=== PATIENT | female | born 1945 | race Caucasian/White ===

== ENCOUNTER 2022-09-28 13:20 | Outpatient (CLI) | payer MEDICARE, OTHER | END 2022-09-28 13:21 | disposition home or self-care (01) | LOC: SCSMRI 13:20 | PROVIDERS: ATTEND Anesthesiology Pain Medicine | DX: M70.72 Other bursitis of hip, left hip (principal); M25.552 Pain in left hip | CPT/HCPCS: 72195 ==

== ENCOUNTER 2022-11-05 09:17 | Inpatient (IN) | payer MEDICARE, OTHER ==
[2022-11-05 10:16] LABS: #Eosinphils 0.1 thou/uL (0.0-0.7); #Lymphocytes 1.6 thou/uL (1.20-3.40); #Monocytes 0.9 thou/uL (0.11-0.59); #Neutrophils 8.9 thou/uL (1.40-6.50); %Basophils 0.2 % (0.0-1.0); %Eosinophils 0.5 % (0.0-10.0); %Lymphocytes 13.8 % (21.0-51.0); %Neutrophils 77.5 % (42.0-75.0); Hemoglobin 12.3 g/dL (12.0-16.0); Mean Corpuscular HGB CONC 32.3 g/dL (32.0-36.0); Mean Corpuscular Hemoglobin 31.8 pg (27.0-31.0); Mean Corpuscular Volume 98.6 fl (78.0-98.0); Mean Platelet Volume 5.9 fL (7.4-10.4); Platelet Count 351 10x3/uL (130-400); RBC Distribution Width 12.6 % (11.5-14.5); Red Blood Cell (RBC) Count 3.86 mill/uL (4.20-5.40); White Blood Cell (WBC) Count 11.5 10x3/uL (4.8-10.8)
[2022-11-05 10:31] LABS: ALT (SGPT) 13 U/L (8-55); AST (SGOT) 14 U/L (5-34); Albumin 3.9 g/dL (3.4-4.8); Alkaline Phosphatase 115 U/L (40-110); Anion Gap 12 mmol/L (10-20); BUN (Urea Nitrogen) 25 mg/dL (9.8-20.1); Bilirubin, Total 0.7 mg/dL (0.2-1.2); Calc. Creatinine Clearance 0 mL/min (70-130); Calcium 9.2 mg/dL (7.8-10.44); Carbon Dioxide 27 mmol/L (23-31); Chloride 100 mmol/L (98-107); Estimated GFR 47; Globulin 3.7 g/dL (2.4-3.5); Glucose 103 mg/dL (83-110); Protein, Total 7.6 g/dL (5.8-8.1); Sodium 135 mmol/L (136-145)
[2022-11-05 11:34] LABS: Bilirubin Negative (Negative); Blood, Urine Negative (Negative); Clarity Clear (Clear); Glucose, Urine (Dipstick) Normal (Negative); Ketone, Urine Negative (Negative); Leukocyte Negative Leu/uL (Negative); Nitrite Negative (Negative); Protein, Urine (Dipstick) Negative (Neg-Trace); Specific Gravity, Urine 1.009 (1.002-1.036); Urobilinogen Normal mg/dL (Less than 2)
[2022-11-05] MEDS ORDERED: Morphine 4 MG/ML VIAL ONE ×2 (11:35→13:04)
[2022-11-05] MEDS ORDERED: Ketorolac Tromethamine 30 MG/ML VIAL ONE (11:35)
[2022-11-05] MEDS ORDERED: Iopamidol-370 76% 500 ML 1 ML ONE (13:05)
[2022-11-05] MEDS ORDERED: cefTRIAXone\\ROCEPHIN 1 GM VIAL ONE (13:18)
[2022-11-05] MEDS ORDERED: Vancomycin 1 GM/200 ML (FROZEN) BAG ONE (14:41)
[2022-11-05] MEDS ORDERED: Acetaminophen 325 MG TAB PO PRN (14:56)
[2022-11-05 16:13] VITALS: BMI 22.3
[2022-11-05] MEDS ORDERED: Enoxaparin Sodium 60 MG/0.6 ML SYRINGE SC SCH (16:30)
[2022-11-05] MEDS: Carvedilol 25 MG TAB PO SCH (18:42)
[2022-11-05] MEDS: Cefepime 1 GM in Sodium Chloride 0.9% 100 ML IVPB SCH (18:43)
[2022-11-05] MEDS: Morphine 4 MG/ML VIAL SLOW IVP PRN (19:56)
[2022-11-05] MEDS ORDERED: Cefepime 2 GM in Sodium Chloride 0.9% 100 ML IVPB SCH (21:00)
[2022-11-05] MEDS ORDERED: Sodium Chloride 0.9% 1,000 ML IV SCH (21:30)
[2022-11-05 22:06] LABS: SARS-CoV-2 NAA Rapid Test Not Detected (NotDetected)
[2022-11-06] MEDS: Cefepime 1 GM in Sodium Chloride 0.9% 100 ML IVPB SCH (04:38)
[2022-11-06] MEDS: Morphine 4 MG/ML VIAL SLOW IVP PRN ×2 (04:38→10:02)
[2022-11-06 06:03] LABS: #Eosinphils 0.1 thou/uL (0.0-0.7); #Lymphocytes 1.6 thou/uL (1.20-3.40); #Monocytes 0.8 thou/uL (0.11-0.59); #Neutrophils 6.6 thou/uL (1.40-6.50); %Basophils 0.1 % (0.0-1.0); %Eosinophils 0.9 % (0.0-10.0); %Lymphocytes 17.8 % (21.0-51.0); %Monocytes 8.5 % (0.0-10.0); %Neutrophils 72.6 % (42.0-75.0); Hemoglobin 12.1 g/dL (12.0-16.0); Mean Corpuscular HGB CONC 33.5 g/dL (32.0-36.0); Mean Corpuscular Hemoglobin 32.9 pg (27.0-31.0); Mean Corpuscular Volume 98.3 fl (78.0-98.0); Mean Platelet Volume 5.8 fL (7.4-10.4); Platelet Count 319 10x3/uL (130-400); RBC Distribution Width 12.6 % (11.5-14.5); Red Blood Cell (RBC) Count 3.69 mill/uL (4.20-5.40)
[2022-11-06 06:29] LABS: Anion Gap 10 mmol/L (10-20); BUN (Urea Nitrogen) 21 mg/dL (9.8-20.1); Calc. Creatinine Clearance 49 mL/min (70-130); Calcium 8.9 mg/dL (7.8-10.44); Carbon Dioxide 27 mmol/L (23-31); Chloride 104 mmol/L (98-107); Estimated GFR 69; Glucose 96 mg/dL (83-110); Potassium 4.4 mmol/L (3.5-5.1); Sodium 137 mmol/L (136-145)
[2022-11-06 07:26] LABS: INR-International Normal Ratio 1.2; Prothrombin Time 15.5 sec (12.0-14.7)
[2022-11-06] MEDS ORDERED: Vancomycin 1 GM in Premix Bag 1 BAG IVPB SCH (09:00)
[2022-11-06] MEDS ORDERED: FLU VACC QS2022-23(65YR UP)/PF 240 MCG/0.7 ML SYRINGE IM ONE (09:00)
[2022-11-06] MEDS ORDERED: Non-Formulary Item 1 EACH (Ubidecarenone [Co Q-10] 10 MG Capsule) PO SCH (09:00)
[2022-11-06] MEDS ORDERED: Enoxaparin Sodium 60 MG/0.6 ML SYRINGE SC SCH ×2 (09:00→21:00)
[2022-11-06] MEDS ORDERED: Promethazine HCl 25 MG/ML VIAL IM PRN (09:45)
[2022-11-06] MEDS ORDERED: Morphine 2 MG/ML VIAL SLOW IVP PRN (09:47)
[2022-11-06] MEDS ORDERED: Ketorolac Tromethamine 30 MG/ML VIAL IVP SCH (10:00)
[2022-11-06] MEDS: Carvedilol 25 MG TAB PO SCH ×2 (10:01→17:53)
[2022-11-06] MEDS: Acetaminophen 325 MG TAB PO SCH ×2 (10:06→17:53)
[2022-11-06] MEDS: Ondansetron PF 4 MG/2 ML Vial IVP PRN (10:07)
[2022-11-06] MEDS: Ketorolac Tromethamine 30 MG/ML VIAL IVP SCH ×2 (11:01→17:54)
[2022-11-06] MEDS: Atorvastatin Calcium 40 MG TAB PO SCH (21:13)
[2022-11-06] MEDS: Famotidine 20 MG TAB PO SCH (21:13)
[2022-11-07] MEDS: Acetaminophen 325 MG TAB PO SCH ×4 (00:20→18:04)
[2022-11-07] MEDS: Ketorolac Tromethamine 30 MG/ML VIAL IVP SCH ×3 (00:21→11:22)
[2022-11-07] MEDS: Ondansetron PF 4 MG/2 ML Vial IVP PRN ×2 (05:39→15:24)
[2022-11-07 08:28] LABS: Vancomycin, Trough 13.9 ug/mL
[2022-11-07] MEDS: Famotidine 20 MG TAB PO SCH ×2 (09:43→22:25)
[2022-11-07] MEDS: Carvedilol 25 MG TAB PO SCH ×2 (09:44→18:03)
[2022-11-07] MEDS ORDERED: ALPRAZolam 1 MG TAB PO SCH (10:45)
[2022-11-07] MEDS ORDERED: FENTANYL 50 MCG/ML 1 ML VIAL ONE (11:21)
[2022-11-07] MEDS ORDERED: Sodium Bicarbonate 2.5 MEQ/5 ML VIAL ONE (12:10)
[2022-11-07] MEDS ORDERED: Magnevist 469MG/ML 20 ML VIAL ONE (13:09)
[2022-11-07] MEDS: Sodium Chloride 0.9% 1,000 ML IV SCH (15:09)
[2022-11-07] MEDS: Morphine 4 MG/ML VIAL SLOW IVP PRN (20:05)
[2022-11-07] MEDS: Atorvastatin Calcium 40 MG TAB PO SCH (22:25)
[2022-11-07] MEDS: Senokot S 8.6-50 MG TAB PO SCH (22:25)
[2022-11-08] MEDS: Acetaminophen 325 MG TAB PO SCH ×3 (00:03→12:49)
[2022-11-08] MEDS: Sodium Chloride 0.9% 1,000 ML IV SCH ×2 (01:12→13:33)
[2022-11-08 06:28] LABS: #Eosinphils 0.1 thou/uL (0.0-0.7); #Lymphocytes 1.5 thou/uL (1.20-3.40); #Monocytes 0.7 thou/uL (0.11-0.59); #Neutrophils 5.4 thou/uL (1.40-6.50); %Basophils 0.1 % (0.0-1.0); %Eosinophils 1.6 % (0.0-10.0); %Lymphocytes 19.2 % (21.0-51.0); %Monocytes 9.3 % (0.0-10.0); %Neutrophils 69.7 % (42.0-75.0); Hemoglobin 10.9 g/dL (12.0-16.0); Mean Corpuscular Hemoglobin 32.6 pg (27.0-31.0); Mean Corpuscular Volume 98.9 fl (78.0-98.0); Mean Platelet Volume 5.8 fL (7.4-10.4); Platelet Count 276 10x3/uL (130-400); RBC Distribution Width 12.4 % (11.5-14.5); Red Blood Cell (RBC) Count 3.34 mill/uL (4.20-5.40); White Blood Cell (WBC) Count 7.8 10x3/uL (4.8-10.8)
[2022-11-08 06:44] LABS: ALT (SGPT) 9 U/L (8-55); AST (SGOT) 14 U/L (5-34); Albumin 3.1 g/dL (3.4-4.8); Alkaline Phosphatase 85 U/L (40-110); Anion Gap 12 mmol/L (10-20); BUN (Urea Nitrogen) 22 mg/dL (9.8-20.1); Bilirubin, Total 0.7 mg/dL (0.2-1.2); Calc. Creatinine Clearance 46 mL/min (70-130); Calcium 8.3 mg/dL (7.8-10.44); Carbon Dioxide 23 mmol/L (23-31); Chloride 107 mmol/L (98-107); Estimated GFR 63; Glucose 88 mg/dL (83-110); Potassium 4.6 mmol/L (3.5-5.1); Protein, Total 6.1 g/dL (5.8-8.1); Sodium 137 mmol/L (136-145)
[2022-11-08] MEDS ORDERED: Polyethylene Glycol 3350 17 GM Packet PO SCH (09:00)
[2022-11-08] MEDS: Carvedilol 25 MG TAB PO SCH (10:02)
[2022-11-08] MEDS: Famotidine 20 MG TAB PO SCH (10:02)
[2022-11-08] MEDS: Senokot S 8.6-50 MG TAB PO SCH (10:02)
[2022-11-08] MEDS ORDERED: Iopamidol-370 76% 500 ML 1 ML ONE (13:07)
[2022-11-08] MEDS: Morphine 4 MG/ML VIAL SLOW IVP PRN (13:30)
[2022-11-08 17:27] VITALS: BP 138/81; TEMP 98.4
== END 2022-11-08 17:30 | disposition home or self-care (01) | DRG 754 ==
LOC: ERS 09:17 → SURG B 15:27
PROVIDERS: ADMIT Family Medicine; ATTEND Internal Medicine
PROC: 0WBH3ZX Excision of Retroperitoneum, Percutaneous Approach, Diagnostic (ICD-10-PCS; principal; 2022-11-07)
DX: C76.3 Malignant neoplasm of pelvis (principal); G93.6 Cerebral edema; I48.11 Longstanding persistent atrial fibrillation; L02.211 Cutaneous abscess of abdominal wall; C79.31 Secondary malignant neoplasm of brain; Z66 Do not resuscitate; K61.39 Other ischiorectal abscess; Z20.822 Contact with and (suspected) exposure to COVID-19; I48.0 Paroxysmal atrial fibrillation; I12.9 Hypertensive chronic kidney disease with stage 1 through stage 4 chronic kidney disease, or unspecified chronic kidney disease; N18.30 Chronic kidney disease, stage 3 unspecified; Z79.01 Long term (current) use of anticoagulants; Z79.899 Other long term (current) drug therapy; Z88.6 Allergy status to analgesic agent
CPT/HCPCS: 36415; 70553; 71260; 72192; 74177; 77012; 80048; 80053; 80202; 81003; 82105; 82378; 85025; 85610; 85730; 86301; 87040; 87086; 88305; 93306; 96374; 96375; A9579; J0692; J0696; J1650; J1885; J2270; J2405; J2550; J3010; J3370-JW; J3490; J7050; Q9967; U0002

== ENCOUNTER 2022-12-20 12:29 | Emergency (ER) | payer MEDICARE, OTHER ==
[2022-12-20 13:00] LABS: #Eosinphils 0.1 thou/uL (0.0-0.7); #Lymphocytes 1.2 thou/uL (1.20-3.40); #Monocytes 0.6 thou/uL (0.11-0.59); #Neutrophils 11.5 thou/uL (1.40-6.50); %Basophils 0.3 % (0.0-1.0); %Eosinophils 0.4 % (0.0-10.0); %Lymphocytes 8.9 % (21.0-51.0); %Monocytes 4.2 % (0.0-10.0); %Neutrophils 86.1 % (42.0-75.0); Hemoglobin 14.6 g/dL (12.0-16.0); Mean Corpuscular HGB CONC 32.3 g/dL (32.0-36.0); Mean Corpuscular Hemoglobin 31.7 pg (27.0-31.0); Mean Platelet Volume 6.1 fL (7.4-10.4); Platelet Count 311 10x3/uL (130-400); RBC Distribution Width 13.6 % (11.5-14.5); Red Blood Cell (RBC) Count 4.62 mill/uL (4.20-5.40); White Blood Cell (WBC) Count 13.4 10x3/uL (4.8-10.8)
[2022-12-20] MEDS ORDERED: Ketorolac Tromethamine 30 MG/ML VIAL ONE (13:14)
[2022-12-20] MEDS ORDERED: HYDROmorphone 0.5 MG/0.5 ML SYRINGE ONE (13:30)
[2022-12-20 13:41] LABS: ALT (SGPT) 15 U/L (8-55); AST (SGOT) 24 U/L (5-34); Albumin 3.4 g/dL (3.4-4.8); Alkaline Phosphatase 85 U/L (40-110); Anion Gap 20 mmol/L (10-20); BUN (Urea Nitrogen) 36 mg/dL (9.8-20.1); Bilirubin, Total 1.8 mg/dL (0.2-1.2); Calc. Creatinine Clearance 0 mL/min (70-130); Calcium 9.4 mg/dL (7.8-10.44); Carbon Dioxide 20 mmol/L (23-31); Chloride 95 mmol/L (98-107); Estimated GFR 39; Globulin 3.5 g/dL (2.4-3.5); Glucose 110 mg/dL (83-110); Potassium 4.4 mmol/L (3.5-5.1); Protein, Total 6.9 g/dL (5.8-8.1); Sodium 131 mmol/L (136-145)
[2022-12-20] MEDS ORDERED: Dextrose 10% in Water 250 ML IVPB SCH (14:00)
[2022-12-20] MEDS ORDERED: Ondansetron PF 4 MG/2 ML Vial ONE (14:18)
[2022-12-20] MEDS ORDERED: Promethazine HCl 25 MG in Sodium Chloride 0.9% 50 ML IVPB SCH (15:15)
== END 2022-12-20 19:50 | disposition home or self-care (01) ==
LOC: ERS 12:29
DX: R10.9 Unspecified abdominal pain (principal); R10.2 Pelvic and perineal pain; E86.0 Dehydration; I10 Essential (primary) hypertension; I48.91 Unspecified atrial fibrillation; E78.00 Pure hypercholesterolemia, unspecified; Z79.01 Long term (current) use of anticoagulants; Z79.899 Other long term (current) drug therapy
CPT/HCPCS: 36415; 74177; 80053; 85025; 96361; 96374; 96375; J1170; J1885; J2405; J2550

== ENCOUNTER 2023-01-04 00:19 | Inpatient (IN) | payer MEDICARE, OTHER ==
[2023-01-04 01:07] LABS: #Basophils 0.1 thou/uL (0.0-0.2); #Eosinphils 0.1 thou/uL (0.0-0.7); #Lymphocytes 1.4 thou/uL (1.20-3.40); #Monocytes 0.8 thou/uL (0.11-0.59); #Neutrophils 7.6 thou/uL (1.40-6.50); %Basophils 0.5 % (0.0-1.0); %Eosinophils 1.1 % (0.0-10.0); %Lymphocytes 14.1 % (21.0-51.0); %Monocytes 7.8 % (0.0-10.0); %Neutrophils 76.6 % (42.0-75.0); Hemoglobin 12.1 g/dL (12.0-16.0); Mean Corpuscular Hemoglobin 31.9 pg (27.0-31.0); Mean Corpuscular Volume 96.6 fl (78.0-98.0); Mean Platelet Volume 5.6 fL (7.4-10.4); Platelet Count 541 10x3/uL (130-400); RBC Distribution Width 13.2 % (11.5-14.5)
[2023-01-04 01:26] LABS: ALT (SGPT) 17 U/L (8-55); AST (SGOT) 22 U/L (5-34); Albumin 2.7 g/dL (3.4-4.8); Alkaline Phosphatase 92 U/L (40-110); Anion Gap 17 mmol/L (10-20); BUN (Urea Nitrogen) 19 mg/dL (9.8-20.1); Bilirubin, Total 1.2 mg/dL (0.2-1.2); Calc. Creatinine Clearance 0 mL/min (70-130); Calcium 8.9 mg/dL (7.8-10.44); Carbon Dioxide 25 mmol/L (23-31); Chloride 97 mmol/L (98-107); Estimated GFR 47; Globulin 3.3 g/dL (2.4-3.5); Glucose 144 mg/dL (83-110); Potassium 3.5 mmol/L (3.5-5.1); Sodium 135 mmol/L (136-145)
[2023-01-04 01:43] LABS: INR-International Normal Ratio 1.7; Prothrombin Time 20.3 sec (12.0-14.7)
[2023-01-04 01:44] LABS: PTT 29.3 sec (22.9-36.1)
[2023-01-04 01:50] LABS: Magnesium 1.6 mg/dL (1.6-2.6); Phosphorus 2.7 mg/dL (2.3-4.7)
[2023-01-04] MEDS ORDERED: Dextrose 5% in Water 1,000 ML IV PRN (02:15)
[2023-01-04] MEDS ORDERED: Dextrose 50% Abboject 50 ML SYRINGE SLOW IVP PRN (02:15)
[2023-01-04] MEDS ORDERED: hydrALAZINE 20 MG/ML VIAL SLOW IVP PRN (02:15)
[2023-01-04] MEDS ORDERED: Acetaminophen/Codeine 30-300mg Tablet PO PRN (02:18)
[2023-01-04] MEDS ORDERED: Cyclobenzaprine 10 MG TAB PO PRN (02:18)
[2023-01-04] MEDS ORDERED: Magnesium 2 GM/50 ML(in water) 2 GM in Premix Bag 1 BAG IVPB SCH (02:30)
[2023-01-04] MEDS ORDERED: Potassium Phosphate 30 MMOL in Sodium Chloride 0.9% 500 ML IVPB SCH (03:00)
[2023-01-04] MEDS ORDERED: Sodium Chloride 0.9% 1,000 ML IV SCH ×2 (03:00→23:55)
[2023-01-04] MEDS ORDERED: Ondansetron PF 4 MG/2 ML Vial ONE ×2 (03:44→04:28)
[2023-01-04] MEDS ORDERED: Magnesium 2 GM/50 ML BAG (IN WATER) ONE (04:02)
[2023-01-04] MEDS ORDERED: Amiodarone 450 MG in Dextrose 5% in Water 250 ML IVPB SCH (04:15)
[2023-01-04] MEDS ORDERED: Amiodarone 150 MG, Admixture Fee 1 EACH in Dextrose 5% in Water 100 ML IVPB SCH (04:15)
[2023-01-04] MEDS ORDERED: Morphine 4 MG/ML VIAL ONE (04:23)
[2023-01-04] MEDS: Ondansetron PF 4 MG/2 ML Vial IVP PRN (04:28)
[2023-01-04] MEDS: Morphine 4 MG/ML VIAL SLOW IVP PRN ×2 (04:30→09:17)
[2023-01-04 06:34] LABS: Bilirubin Negative (Negative); Blood, Urine Negative (Negative); Clarity Clear (Clear); Glucose, Urine (Dipstick) Normal (Negative); Ketone, Urine Trace mg/dL (Negative); Leukocyte Negative Leu/uL (Negative); Nitrite Negative (Negative); Protein, Urine (Dipstick) Negative (Neg-Trace); Specific Gravity, Urine 1.013 (1.002-1.036); Urobilinogen Normal mg/dL (Less than 2)
[2023-01-04 06:46] LABS: Troponin I 0.039 ng/mL (< 0.028)
[2023-01-04] MEDS ORDERED: CEFAZOLIN 2 GM in Sodium Chloride 0.9% 100 ML IVPB SCH (07:30)
[2023-01-04 07:34] VITALS: BMI 19.4
[2023-01-04] MEDS: Gabapentin 100 MG CAP PO SCH ×3 (09:21→22:35)
[2023-01-04] MEDS: Famotidine 20 MG TAB PO SCH ×2 (09:21→22:35)
[2023-01-04] MEDS: Senokot S 8.6-50 MG TAB PO SCH ×2 (09:22→22:35)
[2023-01-04] MEDS: Acetaminophen/Codeine 30-300mg Tablet PO SCH ×4 (09:23→18:24)
[2023-01-04] MEDS: Acetaminophen 325 MG TAB PO SCH ×3 (09:25→18:05)
[2023-01-04] MEDS: Polyethylene Glycol 3350 17 GM Packet PO SCH (09:29)
[2023-01-04 09:33] LABS: Troponin I 0.085 ng/mL (< 0.028)
[2023-01-04 13:58] LABS: Bacteria/HPF None Seen HPF (None Seen); Bilirubin Negative (Negative); Blood, Urine Negative (Negative); CAUTI Indications for Culture Pelvic or flank pain; Clarity Clear (Clear); Glucose, Urine (Dipstick) Normal (Negative); Ketone, Urine Negative (Negative); Leukocyte Negative Leu/uL (Negative); Nitrite Negative (Negative); Protein, Urine (Dipstick) Negative (Neg-Trace); RBC/HPF 0-3 HPF (0-3); Specific Gravity, Urine 1.011 (1.002-1.036); Squamous Epithelial None Seen HPF (0-3); Urobilinogen Normal mg/dL (Less than 2)
[2023-01-04 13:59] LABS: Urine Culture Reflex No No
[2023-01-04] MEDS: Amiodarone 450 MG, Admixture Fee 1 EACH in Dextrose 5% in Water 250 ML IVPB SCH (15:17)
[2023-01-04] MEDS ORDERED: Sodium Chloride 0.9% 500 ML IV SCH (16:15)
[2023-01-04] MEDS ORDERED: Carvedilol 25 MG TAB PO SCH (17:00)
[2023-01-04] MEDS ORDERED: Fentanyl 100 MCG/2 ML VIAL SLOW IVP PRN (19:57)
[2023-01-04] MEDS ORDERED: Hydrocortisone Sod Succ/PF 100 mg/2 ml Vial IVP SCH (20:00)
[2023-01-05] MEDS: Acetaminophen 325 MG TAB PO SCH ×4 (00:03→18:22)
[2023-01-05] MEDS: Acetaminophen/Codeine 30-300mg Tablet PO SCH ×4 (00:04→18:23)
[2023-01-05] MEDS: Hydrocortisone Sod Succ/PF 100 mg/2 ml Vial IVP SCH ×3 (03:15→13:46)
[2023-01-05 04:36] LABS: #Eosinphils 0.1 thou/uL (0.0-0.7); #Lymphocytes 0.9 thou/uL (1.20-3.40); #Monocytes 0.2 thou/uL (0.11-0.59); #Neutrophils 8.4 thou/uL (1.40-6.50); %Lymphocytes 9.7 % (21.0-51.0); %Neutrophils 87.3 % (42.0-75.0); Hemoglobin 12.1 g/dL (12.0-16.0); Mean Corpuscular HGB CONC 32.8 g/dL (32.0-36.0); Mean Corpuscular Hemoglobin 31.8 pg (27.0-31.0); Mean Corpuscular Volume 96.7 fl (78.0-98.0); Mean Platelet Volume 5.8 fL (7.4-10.4); Platelet Count 414 10x3/uL (130-400); RBC Distribution Width 13.5 % (11.5-14.5); Red Blood Cell (RBC) Count 3.82 mill/uL (4.20-5.40); White Blood Cell (WBC) Count 9.7 10x3/uL (4.8-10.8)
[2023-01-05 05:09] LABS: Anion Gap 14 mmol/L (10-20); BUN (Urea Nitrogen) 15 mg/dL (9.8-20.1); Calc. Creatinine Clearance 42 mL/min (70-130); Calcium 8.3 mg/dL (7.8-10.44); Carbon Dioxide 23 mmol/L (23-31); Chloride 102 mmol/L (98-107); Estimated GFR 66; Glucose 118 mg/dL (83-110); Phosphorus 3.5 mg/dL (2.3-4.7); Potassium 4.6 mmol/L (3.5-5.1); Sodium 134 mmol/L (136-145)
[2023-01-05] MEDS ORDERED: Fentanyl 250 MCG/5 ML VIAL ONE (07:24)
[2023-01-05] MEDS ORDERED: CEFAZOLIN 2 GM VIAL ONE (07:58)
[2023-01-05] MEDS ORDERED: Sodium Chloride 0.9% 100 ML ONE (07:58)
[2023-01-05] MEDS ORDERED: ePHEDrine 50 MG/ML VIAL ONE (08:30)
[2023-01-05] MEDS ORDERED: Dexamethasone 20 MG/5 ML VIAL ONE (08:30)
[2023-01-05] MEDS ORDERED: Lidocaine 1% PF 5 ML VIAL ONE (08:30)
[2023-01-05] MEDS ORDERED: PROPOFOL 200 MG/20 ML VIAL ONE (08:30)
[2023-01-05] MEDS ORDERED: Ondansetron PF 4 MG/2 ML Vial ONE (08:30)
[2023-01-05] MEDS ORDERED: Ondansetron HCl/PF 4 MG/2 ML Vial IVP PRN (09:52)
[2023-01-05] MEDS ORDERED: fentaNYL PF 100 MCG/2 ML SYRINGE ONE (09:52)
[2023-01-05] MEDS ORDERED: HYDROmorphone 2 MG/ML VIAL SLOW IVP PRN (09:52)
[2023-01-05] MEDS ORDERED: Promethazine HCl 25 MG/ML VIAL IM PRN (09:52)
[2023-01-05] MEDS: Famotidine 20 MG TAB PO SCH ×2 (10:44→20:26)
[2023-01-05] MEDS: Senokot S 8.6-50 MG TAB PO SCH ×2 (10:45→20:26)
[2023-01-05] MEDS: Gabapentin 100 MG CAP PO SCH ×3 (10:45→20:26)
[2023-01-05] MEDS: Polyethylene Glycol 3350 17 GM Packet PO SCH (10:46)
[2023-01-05] MEDS: Amiodarone 450 MG, Admixture Fee 1 EACH in Dextrose 5% in Water 250 ML IVPB SCH ×2 (10:59→22:00)
[2023-01-05] MEDS: CEFAZOLIN 2 GM in Sodium Chloride 0.9% 100 ML IVPB SCH (15:10)
[2023-01-05] MEDS: fentaNYL 50 mcg/hour Patch TD SCH (16:00)
[2023-01-05] MEDS: Ondansetron PF 4 MG/2 ML Vial IVP PRN (16:00)
[2023-01-05] MEDS ORDERED: Hydrocortisone Sod Succ/PF 100 mg/2 ml Vial IVP SCH (19:30)
[2023-01-05] MEDS: Amiodarone 200 MG TAB PO SCH (20:26)
[2023-01-05] MEDS: Atorvastatin Calcium 40 MG TAB PO SCH (20:26)
[2023-01-05] MEDS: Doxepin HCl 10 MG CAP PO SCH (20:26)
[2023-01-05] MEDS: [UNRECOGNIZED DRUG - OTHER] PO SCH (20:27)
[2023-01-06] MEDS: Hydrocortisone Sod Succ/PF 100 mg/2 ml Vial IVP SCH ×5 (00:02→20:52)
[2023-01-06] MEDS: CEFAZOLIN 2 GM in Sodium Chloride 0.9% 100 ML IVPB SCH (00:02)
[2023-01-06] MEDS: Ondansetron PF 4 MG/2 ML Vial IVP PRN (00:03)
[2023-01-06] MEDS: Acetaminophen/Codeine 30-300mg Tablet PO SCH ×5 (00:03→23:45)
[2023-01-06] MEDS: Acetaminophen 325 MG TAB PO SCH ×5 (00:04→23:45)
[2023-01-06 05:17] LABS: #Monocytes 0.7 thou/uL (0.11-0.59); #Neutrophils 10.9 thou/uL (1.40-6.50); %Basophils 0.1 % (0.0-1.0); %Eosinophils 0.2 % (0.0-10.0); %Lymphocytes 8.1 % (21.0-51.0); %Monocytes 5.8 % (0.0-10.0); %Neutrophils 85.8 % (42.0-75.0); Hemoglobin 9.9 g/dL (12.0-16.0); Mean Corpuscular HGB CONC 33.2 g/dL (32.0-36.0); Mean Corpuscular Volume 96.6 fl (78.0-98.0); Mean Platelet Volume 6.4 fL (7.4-10.4); Platelet Count 345 10x3/uL (130-400); RBC Distribution Width 13.5 % (11.5-14.5); White Blood Cell (WBC) Count 12.7 10x3/uL (4.8-10.8)
[2023-01-06 05:50] LABS: Anion Gap 12 mmol/L (10-20); BUN (Urea Nitrogen) 20 mg/dL (9.8-20.1); Calc. Creatinine Clearance 43 mL/min (70-130); Calcium 7.8 mg/dL (7.8-10.44); Carbon Dioxide 22 mmol/L (23-31); Chloride 103 mmol/L (98-107); Estimated GFR 68; Glucose 138 mg/dL (83-110); Magnesium 1.9 mg/dL (1.6-2.6); Phosphorus 2.4 mg/dL (2.3-4.7); Potassium 3.6 mmol/L (3.5-5.1); Sodium 133 mmol/L (136-145)
[2023-01-06] MEDS ORDERED: Magnesium 2 GM/50 ML(in water) 2 GM in Premix Bag 1 BAG IVPB SCH (09:00)
[2023-01-06] MEDS: [UNRECOGNIZED DRUG - OTHER] PO SCH ×2 (09:33→20:52)
[2023-01-06] MEDS: Polyethylene Glycol 3350 17 GM Packet PO SCH (09:34)
[2023-01-06] MEDS: Gabapentin 100 MG CAP PO SCH ×3 (09:34→20:51)
[2023-01-06] MEDS: Famotidine 20 MG TAB PO SCH ×2 (09:34→20:51)
[2023-01-06] MEDS: Amiodarone 200 MG TAB PO SCH ×2 (09:35→20:51)
[2023-01-06] MEDS: Senokot S 8.6-50 MG TAB PO SCH ×2 (09:35→20:51)
[2023-01-06] MEDS: Doxepin HCl 10 MG CAP PO SCH (20:51)
[2023-01-06] MEDS: Atorvastatin Calcium 40 MG TAB PO SCH (20:51)
[2023-01-07 04:53] LABS: #Eosinphils 0.1 thou/uL (0.0-0.7); #Lymphocytes 1.1 thou/uL (1.20-3.40); #Monocytes 0.7 thou/uL (0.11-0.59); #Neutrophils 10.9 thou/uL (1.40-6.50); %Eosinophils 0.4 % (0.0-10.0); %Lymphocytes 8.2 % (21.0-51.0); %Monocytes 5.5 % (0.0-10.0); %Neutrophils 85.8 % (42.0-75.0); Hemoglobin 9.5 g/dL (12.0-16.0); Mean Corpuscular HGB CONC 33.5 g/dL (32.0-36.0); Mean Corpuscular Hemoglobin 32.4 pg (27.0-31.0); Mean Corpuscular Volume 96.6 fl (78.0-98.0); Mean Platelet Volume 6.2 fL (7.4-10.4); Platelet Count 357 10x3/uL (130-400); RBC Distribution Width 13.5 % (11.5-14.5); Red Blood Cell (RBC) Count 2.94 mill/uL (4.20-5.40); White Blood Cell (WBC) Count 12.7 10x3/uL (4.8-10.8)
[2023-01-07 05:18] LABS: Anion Gap 11 mmol/L (10-20); BUN (Urea Nitrogen) 25 mg/dL (9.8-20.1); Calc. Creatinine Clearance 43 mL/min (70-130); Carbon Dioxide 23 mmol/L (23-31); Chloride 105 mmol/L (98-107); Potassium 4.1 mmol/L (3.5-5.1); Sodium 135 mmol/L (136-145)
[2023-01-07 05:19] LABS: Calcium 7.6 mg/dL (7.8-10.44); Estimated GFR 63; Glucose 127 mg/dL (83-110); Magnesium 2.4 mg/dL (1.6-2.6); Phosphorus 3.2 mg/dL (2.3-4.7)
[2023-01-07] MEDS: Hydrocortisone Sod Succ/PF 100 mg/2 ml Vial IVP SCH ×3 (05:32→21:07)
[2023-01-07] MEDS: Acetaminophen 325 MG TAB PO SCH (05:33)
[2023-01-07] MEDS: Acetaminophen/Codeine 30-300mg Tablet PO SCH (05:33)
[2023-01-07] MEDS: Senokot S 8.6-50 MG TAB PO SCH ×2 (08:33→21:03)
[2023-01-07] MEDS: Gabapentin 100 MG CAP PO SCH ×3 (08:33→21:05)
[2023-01-07] MEDS: Famotidine 20 MG TAB PO SCH ×2 (08:33→21:03)
[2023-01-07] MEDS: Polyethylene Glycol 3350 17 GM Packet PO SCH (08:33)
[2023-01-07] MEDS: Amiodarone 200 MG TAB PO SCH ×2 (08:33→21:05)
[2023-01-07] MEDS: [UNRECOGNIZED DRUG - OTHER] PO SCH ×2 (08:33→21:12)
[2023-01-07] MEDS ORDERED: traMADol HCl 50 MG TAB PO PRN (09:25)
[2023-01-07] MEDS ORDERED: Acetaminophen 325 MG TAB PO SCH (09:28)
[2023-01-07] MEDS ORDERED: Scopolamine 1.5 mg/72 hour Patch TD SCH (10:00)
[2023-01-07] MEDS: Acetaminophen 500 MG TAB PO SCH ×3 (11:36→23:50)
[2023-01-07] MEDS: traMADol HCl 50 MG TAB PO SCH ×3 (11:36→23:49)
[2023-01-07] MEDS: Atorvastatin Calcium 40 MG TAB PO SCH (21:03)
[2023-01-07] MEDS: Apixaban 5 MG TAB PO SCH (21:06)
[2023-01-07] MEDS: Doxepin HCl 10 MG CAP PO SCH (22:05)
[2023-01-08 04:53] LABS: #Eosinphils 0.1 thou/uL (0.0-0.7); #Lymphocytes 0.9 thou/uL (1.20-3.40); #Monocytes 0.5 thou/uL (0.11-0.59); #Neutrophils 7.9 thou/uL (1.40-6.50); %Eosinophils 0.6 % (0.0-10.0); %Lymphocytes 9.2 % (21.0-51.0); %Monocytes 5.7 % (0.0-10.0); %Neutrophils 84.5 % (42.0-75.0); Hemoglobin 8.7 g/dL (12.0-16.0); Mean Corpuscular HGB CONC 33.3 g/dL (32.0-36.0); Mean Corpuscular Hemoglobin 32.5 pg (27.0-31.0); Mean Corpuscular Volume 97.6 fl (78.0-98.0); Mean Platelet Volume 6.2 fL (7.4-10.4); Platelet Count 346 10x3/uL (130-400); RBC Distribution Width 13.5 % (11.5-14.5); Red Blood Cell (RBC) Count 2.68 mill/uL (4.20-5.40); White Blood Cell (WBC) Count 9.4 10x3/uL (4.8-10.8)
[2023-01-08] MEDS: Acetaminophen 500 MG TAB PO SCH ×4 (05:57→18:48)
[2023-01-08] MEDS: Hydrocortisone Sod Succ/PF 100 mg/2 ml Vial IVP SCH ×3 (05:57→22:06)
[2023-01-08] MEDS: traMADol HCl 50 MG TAB PO SCH ×3 (05:58→18:49)
[2023-01-08] MEDS: Gabapentin 100 MG CAP PO SCH ×3 (08:37→20:48)
[2023-01-08] MEDS: Famotidine 20 MG TAB PO SCH ×2 (08:38→20:49)
[2023-01-08] MEDS: Apixaban 5 MG TAB PO SCH ×2 (08:38→20:49)
[2023-01-08] MEDS: Amiodarone 200 MG TAB PO SCH ×2 (08:38→21:54)
[2023-01-08] MEDS: Senokot S 8.6-50 MG TAB PO SCH ×2 (08:39→20:49)
[2023-01-08] MEDS: Polyethylene Glycol 3350 17 GM Packet PO SCH (08:39)
[2023-01-08] MEDS: [UNRECOGNIZED DRUG - OTHER] PO SCH ×2 (08:45→21:53)
[2023-01-08] MEDS: Ondansetron PF 4 MG/2 ML Vial IVP PRN ×2 (12:57→20:58)
[2023-01-08] MEDS: fentaNYL 50 mcg/hour Patch TD SCH (15:41)
[2023-01-08] MEDS: Atorvastatin Calcium 40 MG TAB PO SCH (20:49)
[2023-01-08] MEDS: Doxepin HCl 10 MG CAP PO SCH (20:49)
[2023-01-09] MEDS: Acetaminophen 500 MG TAB PO SCH ×3 (04:04→12:25)
[2023-01-09] MEDS: traMADol HCl 50 MG TAB PO SCH ×3 (04:06→12:26)
[2023-01-09] MEDS: Hydrocortisone Sod Succ/PF 100 mg/2 ml Vial IVP SCH (06:18)
[2023-01-09] MEDS: Apixaban 5 MG TAB PO SCH (08:16)
[2023-01-09] MEDS: Amiodarone 200 MG TAB PO SCH (08:16)
[2023-01-09] MEDS: Gabapentin 100 MG CAP PO SCH (08:16)
[2023-01-09] MEDS: Polyethylene Glycol 3350 17 GM Packet PO SCH (08:17)
[2023-01-09] MEDS: Senokot S 8.6-50 MG TAB PO SCH (08:17)
[2023-01-09] MEDS: Famotidine 20 MG TAB PO SCH (08:17)
[2023-01-09] MEDS: [UNRECOGNIZED DRUG - OTHER] PO SCH (08:24)
[2023-01-09] MEDS: Ondansetron PF 4 MG/2 ML Vial IVP PRN (12:25)
[2023-01-09 12:30] VITALS: BP 127/77; TEMP 99.2
[2023-01-19] MEDS ORDERED: Amiodarone 200 MG TAB PO SCH (09:00)
== END 2023-01-09 14:30 | disposition home or self-care (01) | DRG 480 ==
LOC: ERS 00:19 → ERHOLD 02:19 → 2NO 06:18
PROVIDERS: ADMIT Surgery; ATTEND Surgery
PROC: 0QH936Z Insertion of Intramedullary Internal Fixation Device into Left Femoral Shaft, Percutaneous Approach (ICD-10-PCS; principal; 2023-01-05)
DX: S72.332A Displaced oblique fracture of shaft of left femur, initial encounter for closed fracture (principal); G93.6 Cerebral edema; C34.90 Malignant neoplasm of unspecified part of unspecified bronchus or lung; C79.31 Secondary malignant neoplasm of brain; E78.00 Pure hypercholesterolemia, unspecified; I48.0 Paroxysmal atrial fibrillation; W18.30XA Fall on same level, unspecified, initial encounter; I12.9 Hypertensive chronic kidney disease with stage 1 through stage 4 chronic kidney disease, or unspecified chronic kidney disease; N18.30 Chronic kidney disease, stage 3 unspecified; D75.839 Thrombocytosis, unspecified; Z88.5 Allergy status to narcotic agent; Z79.899 Other long term (current) drug therapy; Z79.01 Long term (current) use of anticoagulants; Z90.710 Acquired absence of both cervix and uterus
CPT/HCPCS: 36415; 36416; 70450; 70553; 71045; 80048; 80053; 81003; 82533; 83690; 83735; 84100; 84484; 85025; 85610; 85730; 86850; 86900; 86901; 87086; 93005; 93010; 96374; C1713; G0390; J0282; J1100; J1720; J2270; J2405; J2704; J3010; J3475; J3490; J7030; J7050; J7070; U0003; U0005

== ENCOUNTER 2023-01-13 21:34 | Inpatient (IN) | payer MEDICARE, OTHER ==
[2023-01-13] MEDS ORDERED: Apixaban 5 MG TAB PO SCH (22:30)
[2023-01-13] MEDS ORDERED: Amiodarone 200 MG TAB PO SCH (22:30)
[2023-01-13 23:06] LABS: #Basophils 0.1 thou/uL (0.0-0.2); #Eosinphils 0.2 thou/uL (0.0-0.7); #Lymphocytes 1.2 thou/uL (1.20-3.40); #Monocytes 0.7 thou/uL (0.11-0.59); #Neutrophils 7.8 thou/uL (1.40-6.50); %Basophils 0.7 % (0.0-1.0); %Eosinophils 1.9 % (0.0-10.0); %Lymphocytes 11.7 % (21.0-51.0); %Neutrophils 78.7 % (42.0-75.0); Hemoglobin 10.2 g/dL (12.0-16.0); Mean Corpuscular HGB CONC 33.9 g/dL (32.0-36.0); Mean Corpuscular Hemoglobin 32.9 pg (27.0-31.0); Mean Corpuscular Volume 97.1 fl (78.0-98.0); Mean Platelet Volume 6.6 fL (7.4-10.4); Platelet Count 282 10x3/uL (130-400); RBC Distribution Width 15.1 % (11.5-14.5); Red Blood Cell (RBC) Count 3.11 mill/uL (4.20-5.40); White Blood Cell (WBC) Count 9.9 10x3/uL (4.8-10.8)
[2023-01-13 23:20] LABS: ALT (SGPT) 7 U/L (8-55); AST (SGOT) 31 U/L (5-34); Albumin 1.9 g/dL (3.4-4.8); Alkaline Phosphatase 78 U/L (40-110); Anion Gap 13 mmol/L (10-20); BUN (Urea Nitrogen) 30 mg/dL (9.8-20.1); Bilirubin, Total 1.5 mg/dL (0.2-1.2); Calc. Creatinine Clearance 0 mL/min (70-130); Calcium 7.5 mg/dL (7.8-10.44); Carbon Dioxide 17 mmol/L (23-31); Chloride 107 mmol/L (98-107); Estimated GFR 69; Globulin 2.7 g/dL (2.4-3.5); Glucose 83 mg/dL (83-110); Magnesium 1.6 mg/dL (1.6-2.6); Potassium 4.2 mmol/L (3.5-5.1); Protein, Total 4.6 g/dL (5.8-8.1); Sodium 133 mmol/L (136-145)
[2023-01-13 23:40] LABS: CKMB 9.6 ng/mL (0-6.6)
[2023-01-14 00:51] LABS: Bacteria/HPF None Seen HPF (None Seen); Bilirubin Negative (Negative); Blood, Urine Negative (Negative); Clarity Turbid (Clear); Glucose, Urine (Dipstick) Normal (Negative); Ketone, Urine 20 mg/dL (Negative); Leukocyte 500 Leu/uL (Negative); Nitrite Negative (Negative); Protein, Urine (Dipstick) 20 mg/dL (Neg-Trace); Renal Epithelial 0-3 HPF (None Seen); Specific Gravity, Urine 1.027 (1.002-1.036); Squamous Epithelial 0-3 HPF (0-3); Urobilinogen Normal mg/dL (Less than 2); WBC/HPF Greater than 50 HPF (0-3)
[2023-01-14 02:49] VITALS: BMI 23.5
[2023-01-14] MEDS ORDERED: Ondansetron PF 4 MG/2 ML Vial IVP PRN (04:34)
[2023-01-14] MEDS ORDERED: Ondansetron ODT 4 MG TAB PO PRN (04:34)
[2023-01-14] MEDS ORDERED: Acetaminophen 650 MG Suppository PR PRN (04:34)
[2023-01-14] MEDS ORDERED: Acetaminophen 325 MG TAB PO PRN (04:34)
[2023-01-14] MEDS: Sodium Chloride 0.9% 1,000 ML IV SCH ×2 (07:00→15:58)
[2023-01-14 07:11] LABS: Troponin I 0.106 ng/mL (< 0.028)
[2023-01-14 07:41] LABS: Troponin I 0.099 ng/mL (< 0.028)
[2023-01-14] MEDS: Carvedilol 25 MG TAB PO SCH ×2 (11:15→21:19)
[2023-01-14] MEDS: Atorvastatin Calcium 40 MG TAB PO SCH (21:19)
[2023-01-14] MEDS: Amiodarone 200 MG TAB PO SCH (21:20)
[2023-01-14] MEDS: Apixaban 5 MG TAB PO SCH (21:20)
[2023-01-14] MEDS ORDERED: Sodium Chloride 0.65% Nasal 44 ML BOT EA NARE PRN (21:49)
[2023-01-14] MEDS ORDERED: Electrolyte Replacement Protocol 1 EACH FS SCH (22:00)
[2023-01-14] MEDS ORDERED: Ondansetron PF 4 MG/2 ML Vial IVP SCH (22:00)
[2023-01-14] MEDS ORDERED: Magnesium 2 GM/50 ML(in water) 2 GM in Premix Bag 1 BAG IVPB SCH (22:00)
[2023-01-15 05:17] LABS: #Eosinphils 0.1 thou/uL (0.0-0.7); #Lymphocytes 0.9 thou/uL (1.20-3.40); #Monocytes 0.5 thou/uL (0.11-0.59); #Neutrophils 8.7 thou/uL (1.40-6.50); %Basophils 0.1 % (0.0-1.0); %Eosinophils 1.4 % (0.0-10.0); %Lymphocytes 8.8 % (21.0-51.0); %Monocytes 5.3 % (0.0-10.0); %Neutrophils 84.4 % (42.0-75.0); Hemoglobin 10.7 g/dL (12.0-16.0); Mean Corpuscular HGB CONC 31.8 g/dL (32.0-36.0); Mean Corpuscular Hemoglobin 31.4 pg (27.0-31.0); Mean Corpuscular Volume 98.7 fl (78.0-98.0); Mean Platelet Volume 6.4 fL (7.4-10.4); Platelet Count 371 10x3/uL (130-400); RBC Distribution Width 15.1 % (11.5-14.5); Red Blood Cell (RBC) Count 3.42 mill/uL (4.20-5.40); White Blood Cell (WBC) Count 10.3 10x3/uL (4.8-10.8)
[2023-01-15 05:31] LABS: Anion Gap 17 mmol/L (10-20); BUN (Urea Nitrogen) 23 mg/dL (9.8-20.1); Calc. Creatinine Clearance 59 mL/min (70-130); Calcium 7.8 mg/dL (7.8-10.44); Carbon Dioxide 13 mmol/L (23-31); Chloride 107 mmol/L (98-107); Estimated GFR 80; Glucose 71 mg/dL (83-110); Magnesium 1.9 mg/dL (1.6-2.6); Potassium 3.6 mmol/L (3.5-5.1); Sodium 133 mmol/L (136-145)
[2023-01-15] MEDS ORDERED: Magnesium 2 GM/50 ML(in water) 2 GM in Premix Bag 1 BAG IVPB SCH (08:30)
[2023-01-15] MEDS: Apixaban 5 MG TAB PO SCH ×2 (09:49→20:41)
[2023-01-15] MEDS: Amiodarone 200 MG TAB PO SCH ×2 (09:49→20:41)
[2023-01-15] MEDS: Carvedilol 25 MG TAB PO SCH ×2 (09:49→20:41)
[2023-01-15] MEDS ORDERED: GUAIFENESIN SF SOLN 200 MG/10 ML UDCUP PO PRN (11:43)
[2023-01-15] MEDS: Gabapentin 100 MG CAP PO SCH ×2 (16:35→20:40)
[2023-01-15] MEDS ORDERED: Ondansetron PF 4 MG/2 ML Vial IVP SCH (17:45)
[2023-01-15] MEDS: Promethazine HCl 12.5 MG in Sodium Chloride 0.9% 50 ML IVPB SCH (19:00)
[2023-01-15] MEDS: Atorvastatin Calcium 40 MG TAB PO SCH (20:41)
[2023-01-15] MEDS: Doxepin HCl 10 MG CAP PO SCH ×2 (20:42→21:12)
[2023-01-16] MEDS: Ondansetron PF 4 MG/2 ML Vial IVP SCH ×3 (01:33→18:36)
[2023-01-16] MEDS ORDERED: Metoprolol Tartrate 5 MG/5 ML VIAL IVP SCH (05:30)
[2023-01-16 05:46] LABS: ALT (SGPT) Less than 7 U/L (8-55); AST (SGOT) 21 U/L (5-34); Albumin 1.8 g/dL (3.4-4.8); Alkaline Phosphatase 79 U/L (40-110); Anion Gap 16 mmol/L (10-20); BUN (Urea Nitrogen) 21 mg/dL (9.8-20.1); Bilirubin, Total 0.7 mg/dL (0.2-1.2); Calc. Creatinine Clearance 60 mL/min (70-130); Calcium 7.6 mg/dL (7.8-10.44); Carbon Dioxide 15 mmol/L (23-31); Chloride 107 mmol/L (98-107); Estimated GFR 81; Globulin 2.5 g/dL (2.4-3.5); Glucose 80 mg/dL (83-110); Magnesium 1.8 mg/dL (1.6-2.6); Phosphorus 2.2 mg/dL (2.3-4.7); Potassium 3.5 mmol/L (3.5-5.1); Protein, Total 4.3 g/dL (5.8-8.1); Sodium 134 mmol/L (136-145)
[2023-01-16] MEDS ORDERED: Sodium Chloride 0.9% 500 ML IV SCH (06:00)
[2023-01-16] MEDS: Promethazine HCl 12.5 MG in Sodium Chloride 0.9% 50 ML IVPB SCH ×2 (06:32→19:26)
[2023-01-16] MEDS ORDERED: Potassium Chloride 20 MEQ TAB PO SCH (08:00)
[2023-01-16] MEDS ORDERED: Magnesium 2 GM/50 ML(in water) 2 GM in Premix Bag 1 BAG IVPB SCH (08:00)
[2023-01-16] MEDS: Gabapentin 100 MG CAP PO SCH ×3 (10:24→22:39)
[2023-01-16] MEDS: Amiodarone 200 MG TAB PO SCH ×2 (10:24→20:57)
[2023-01-16] MEDS: Carvedilol 25 MG TAB PO SCH ×2 (10:24→22:38)
[2023-01-16] MEDS: Apixaban 5 MG TAB PO SCH ×2 (10:24→22:38)
[2023-01-16] MEDS: Polyethylene Glycol 3350 17 GM Packet PO SCH (10:25)
[2023-01-16] MEDS ORDERED: Ondansetron PF 4 MG/2 ML Vial IVP PRN (16:24)
[2023-01-16] MEDS: Dexamethasone 4 mg/ml Vial SLOW IVP SCH (20:56)
[2023-01-16] MEDS: Atorvastatin Calcium 40 MG TAB PO SCH (22:38)
[2023-01-16] MEDS: Doxepin HCl 10 MG CAP PO SCH (22:39)
[2023-01-17] MEDS: Ondansetron PF 4 MG/2 ML Vial IVP SCH ×3 (00:08→08:12)
[2023-01-17] MEDS: Promethazine HCl 12.5 MG in Sodium Chloride 0.9% 50 ML IVPB SCH (05:55)
[2023-01-17] MEDS ORDERED: Metoprolol Tartrate 5 MG/5 ML VIAL IVP PRN (07:28)
[2023-01-17] MEDS: Gabapentin 100 MG CAP PO SCH ×2 (08:03→14:31)
[2023-01-17] MEDS: Apixaban 5 MG TAB PO SCH (08:04)
[2023-01-17] MEDS: Carvedilol 25 MG TAB PO SCH (08:05)
[2023-01-17] MEDS: Amiodarone 200 MG TAB PO SCH (08:05)
[2023-01-17] MEDS: Dexamethasone 4 mg/ml Vial SLOW IVP SCH (08:05)
[2023-01-17] MEDS: Polyethylene Glycol 3350 17 GM Packet PO SCH (08:05)
[2023-01-17] MEDS ORDERED: Ondansetron PF 4 MG/2 ML Vial IVP SCH (11:00)
[2023-01-17 13:53] VITALS: BP 111/79; TEMP 98.8
[2023-01-17 16:40] LABS: ALT (SGPT) Less than 7 U/L (8-55); AST (SGOT) 19 U/L (5-34); Albumin 1.9 g/dL (3.4-4.8); Alkaline Phosphatase 93 U/L (40-110); Anion Gap 15 mmol/L (10-20); BUN (Urea Nitrogen) 24 mg/dL (9.8-20.1); Bilirubin, Total 0.6 mg/dL (0.2-1.2); Calc. Creatinine Clearance 54 mL/min (70-130); Calcium 7.4 mg/dL (7.8-10.44); Carbon Dioxide 17 mmol/L (23-31); Chloride 106 mmol/L (98-107); Estimated GFR 76; Globulin 2.4 g/dL (2.4-3.5); Glucose 97 mg/dL (83-110); Potassium 4.2 mmol/L (3.5-5.1); Protein, Total 4.3 g/dL (5.8-8.1); Sodium 134 mmol/L (136-145)
== END 2023-01-17 16:55 | disposition hospice, home (50) | DRG 309 ==
LOC: ERS 21:34 → ERHOLD 01-14 00:58 → 2NO 01-14 14:58 → OBSVTOIN 01-15 17:41
PROVIDERS: ADMIT Student in an Organized Health Care Education/Training Program; ATTEND Family Medicine
DX: I48.11 Longstanding persistent atrial fibrillation (principal); C79.31 Secondary malignant neoplasm of brain; E87.1 Hypo-osmolality and hyponatremia; I95.9 Hypotension, unspecified; Z20.822 Contact with and (suspected) exposure to COVID-19; I10 Essential (primary) hypertension; Z51.5 Encounter for palliative care; Z66 Do not resuscitate; E78.5 Hyperlipidemia, unspecified; D64.9 Anemia, unspecified; C50.919 Malignant neoplasm of unspecified site of unspecified female breast; E78.00 Pure hypercholesterolemia, unspecified; R77.8 Other specified abnormalities of plasma proteins; I34.0 Nonrheumatic mitral (valve) insufficiency; Z88.8 Allergy status to other drugs, medicaments and biological substances; Z79.01 Long term (current) use of anticoagulants; Z88.6 Allergy status to analgesic agent; Z79.899 Other long term (current) drug therapy; Z91.14 Patient's other noncompliance with medication regimen
CPT/HCPCS: 36415; 71045; 80048; 80053; 81003; 81015; 82553; 83605; 83735; 83880; 84100; 84484; 85025; 87040; 93005; 93010; 96360; 96361; 96374; 96375; G0378; J0780; J1100; J2405; J2550; J3475; J7030; J7050; Q0162; U0003; U0005